=== PATIENT | female | born 1990 | race American Indian/Alaskan Native ===

== ENCOUNTER 2017-12-04 14:23 | Emergency (ER) | payer MEDICAID ==
[2017-12-04 14:57] VITALS: RESP 20; O2SAT 100
--- NOTE | 2017-12-04 15:27 | C.PDOC ---
History Of Present Illness <Promise Mathis - Last Filed: 12/04/17 18:45> <Sunny Veronica - Last Filed: 12/04/17 18:47> CC:"vaginal bleeding" HPI: 27 year old female at 6 weeks 4 days presents to the ED for vaginal bleeding. Patient states her FDLP was 10/19/17. Patient states the vaginal spotting started today at noon. She denies fever, vaginal clots, nausea , bleeding or dysuria. She states she was recently at [facility] 2 days ago for pelvic cramping and she found out she was however they could not see her gestational sac and asked her to return to the hospital in 2 days. While at [facility] she was also diagnosed with a UTI and given Nitrofurantoin which she states she has been taking. Patient states she still has pelvic cramping pain and it is an 8/10 pain. She has an appointment set to see her manager cardiac Dr. Schulz tomorrow. PMD: Dr. Gonzalez PSYCHOLOGY CLINICIAN: Dr. Schulz OBGYN History: Term vaginal delivery 2013; Term Vaginal delivery 2008; Miscarriage 2007 Medical History: Asthma, anemia, anxiety Surgical History: denies Medications: Albuterol, Citalopram, Nitrofurantoin 100mg bid for 7 days Allergies: seafood Social History: smokes 2 cigarettes per day since 2009; denies alcohol or illicit drug use (Promise Mathis) History Per: Patient History/Exam Limitations: no limitations Onset/Duration Of Symptoms: Hrs Pain Scale Rating Of: 8 Quality Of Discomfort: Cramping Associated Symptoms: denies: Fever, Chills <Promise Mathis - Last Filed: 12/04/17 18:45> <Sunny Veronica - Last Filed: 12/04/17 18:47> Time Seen by Provider: 12/04/17 15:14 Chief Complaint (Nursing): Female Genitourinary Past Medical History - Medical History PMH: Anemia, Anxiety, Asthma, Back Problems, Chronic Pain (Back) Family History: States: No Known Family Hx - Social History Hx Alcohol Use: No Hx Substance Use: No <Promise Mathis - Last Filed: 12/04/17 18:45> Vital Signs: Last Vital Signs Temp 97.8 F 12/04/17 14:53 Pulse 100 H 12/04/17 14:53 Resp 20 12/04/17 14:53 BP 142/85 12/04/17 14:53 Pulse Ox 100 12/04/17 18:46 Review Of Systems Constitutional: Negative for: Fever, Chills Cardiovascular: Negative for: Chest Pain, Palpitations Respiratory: Negative for: Cough, Shortness of Breath Gastrointestinal: Negative for: Nausea, Vomiting, Diarrhea, Constipation Genitourinary: Positive for: Vaginal Bleeding, Pelvic Pain. Negative for: Dysuria Neurological: Negative for: Weakness, Numbness <Promise Mathis - Last Filed: 12/04/17 18:45> Physical Exam - Physical Exam Appears: Well, Non-toxic, No Acute Distress Skin: Normal Color Head: Atraumatic, Normacephalic Eye(s): bilateral: Normal Inspection, PERRL, EOMI Oral Mucosa: Moist Cardiovascular: Rhythm Regular, No Murmur Respiratory: Normal Breath Sounds, No Decreased Breath Sounds, No Accessory Muscle Use, No Wheezing Gastrointestinal/Abdominal: Normal Exam, Bowel Sounds (normal), Soft, No Tenderness Pelvic: Other (lower pelvic pain) <Promise Mathis - Last Filed: 12/04/17 18:45> ED Course And Treatment - Laboratory Results Result Diagrams: 12/04/17 15:49 12/04/17 15:49 O2 Sat by Pulse Oximetry: 100 <Promise Mathis - Last Filed: 12/04/17 18:45> - Laboratory Results Result Diagrams: 12/04/17 15:49 12/04/17 15:49 <Sunny Veronica - Last Filed: 12/04/17 18:47> Medical Decision Making: Vaginal Spotting - beta hc.50 - cbc: H/H 12.2/37; WBC 7.3 - cmp: WNL - UA negative - Type and screen: A+ - pelvic us: no evidence of intrauterine gestational sac (Promise Mathis) Disposition Discussed With : Sunny Veronica Doctor Will See Patient In The: ED - Disposition Disposition Time: 18:43 <Promise Mathis - Last Filed: 12/04/17 18:45> <Sunny Veronica - Last Filed: 12/04/17 18:47> - Disposition Disposition: HOME/ ROUTINE Condition: GOOD Instructions: Forms: [facility] ([employer]) Print Language: JAPANESE - Clinical Impression Clinical Impression: Complete - PA / 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 MD/DO has examined the patient and agrees with the treatment plan. <Promise Mathis - Last Filed: 12/04/17 18:45>
[2017-12-04 15:56] LABS: BASO % 0.4 % (0.0-2.0); EOS # 0.1 K/uL (0.0-0.7); EOS % 1.3 % (0.0-4.0); HEMOGLOBIN 12.2 g/dL (11.0-16.0); LYMPH # 1.7 K/uL (1.0-4.3); LYMPH % 23.8 % (20.0-40.0); MEAN CELL VOLUME 85.1 fL (81.0-99.0); MEAN CORPUSCULAR HEMOGLOBIN 28.2 pg (27.0-31.0); MEAN CORPUSCULAR HGB CONC 33.1 g/dL (33.0-37.0); MEAN PLATELET VOLUME 7.8 fL (7.2-11.7); MONO # 0.5 K/uL (0.0-0.8); MONO % 6.8 % (0.0-10.0); NEUT # 4.9 K/uL (1.8-7.0); NEUT % 67.7 % (50.0-75.0); NRBC % 0.1 % (0.0-2.0); RBC 4.34 Mil/uL (3.80-5.20); RED CELL DISTRIBUTION WIDTH 14.3 % (11.5-14.5); WHITE BLOOD COUNT 7.3 K/uL (4.8-10.8)
[2017-12-04 16:08] LABS: SQUAMOUS EPITHIAL 3 /hpf (0-5); URINE BACTERIA RARE (<OCC); URINE BILIRUBIN NEGATIVE (NEGATIVE); URINE BLOOD NEGATIVE (NEGATIVE); URINE CLARITY Hazy (Clear); URINE COLOR Yellow (YELLOW); URINE GLUCOSE (UA) NORMAL (Normal); URINE NITRATE NEGATIVE (NEGATIVE); URINE PROTEIN NEGATIVE (NEGATIVE)
[2017-12-04 16:11] LABS: URINE LEUKOCYTE ESTERASE 1+ Leu/uL (Negative)
[2017-12-04 16:17] LABS: ALB/GLOB RATIO 1.1 (1.0-2.1); ALBUMIN 4.2 g/dL (3.5-5.0); ALT/SGPT 37 U/L (9-52); AST/SGOT 31 U/L (14-36); BLOOD UREA NITROGEN 10 mg/dL (7-17); CALCIUM 9.2 mg/dl (8.6-10.4); GFR AFRICAN-AMERICAN > 60; GFR NON-AFRICAN AMERICAN > 60
--- NOTE | 2017-12-04 18:30 | US ---
HISTORY: vaginal bleeding COMPARISON: None available. TECHNIQUE: Real-time transabdominal pelvic ultrasound was performed. In addition a transvaginal pelvic ultrasound was necessary to better depict pelvic anatomy. FINDINGS: UTERUS: Measures 10.0 x 5.9 x 6.4 cm. Anteverted. ENDOMETRIUM: Measures 1.0 cm in diameter. CERVIX: No cervical abnormality identified. RIGHT OVARY: Measures 2.6 x 2.4 x 2.6 cm. Blood flow is demonstrated. LEFT OVARY: Measures 3.5 x 1.9 x 3.4 cm. Blood flow is demonstrated. Complex left ovarian cyst measures approximately 1.6 cm. 1 cm left para ovarian cyst appears simple. FREE FLUID: No significant free fluid noted. OTHER FINDINGS: None. IMPRESSION: No evidence of intrauterine gestational sac. If indeed the patient is based on serum beta HCG values, the sonographic findings represent either: Very early IUP; embryonic demise; ectopic gestation. Follow-up with serial quantitative serum beta HCG measurements and post OBGYN follow-up as clinically indicated, since ectopic gestation cannot be excluded based only on sonographic findings. Complex left ovarian cyst measures approximately 1.6 cm. 1 cm simple appearing left para ovarian cyst.
[2017-12-04 19:05] VITALS: BP 120/80; PULSE 73; TEMP 98.8
== END 2017-12-04 19:05 | disposition home or self-care (01) ==
LOC: C.ER 14:23
DX: O03.9 Complete or unspecified spontaneous abortion without complication (principal)